=== PATIENT | female | born 1935 | race Caucasian/White ===

== ENCOUNTER 2022-12-27 14:30 | Emergency (ER) | payer MEDICARE ==
[2022-12-27] MEDS ORDERED: Calcium Gluc 4.6 MEQ/10 ML (100 MG/ML) ONE ×2 (14:52)
[2022-12-27 15:33] LABS: #Basophils 0.2 thou/uL (0.0-0.2); #Eosinphils 0.4 thou/uL (0.0-0.7); #Lymphocytes 3.3 thou/uL (1.20-3.40); #Monocytes 1.4 thou/uL (0.11-0.59); #Neutrophils 12.8 thou/uL (1.40-6.50); %Basophils 1.3 % (0.0-1.0); %Eosinophils 2.4 % (0.0-10.0); %Lymphocytes 18.3 % (21.0-51.0); %Monocytes 7.5 % (0.0-10.0); %Neutrophils 70.5 % (42.0-75.0); Hematocrit 29.7 % (36.0-47.0); Hemoglobin 9.3 g/dL (12.0-16.0); Mean Corpuscular HGB CONC 31.4 g/dL (32.0-36.0); Mean Corpuscular Hemoglobin 27.9 pg (27.0-31.0); Mean Platelet Volume 7.2 fL (7.4-10.4); Platelet Count 419 10x3/uL (130-400); RBC Distribution Width 15.9 % (11.5-14.5); Red Blood Cell (RBC) Count 3.34 mill/uL (4.20-5.40); White Blood Cell (WBC) Count 18.2 10x3/uL (4.8-10.8)
[2022-12-27 15:34] LABS: Prothrombin Time 13.2 sec (12.0-14.7)
[2022-12-27 15:37] LABS: PTT 21.8 sec (22.9-36.1)
[2022-12-27] MEDS ORDERED: Sodium Chloride 0.9% 100 ML ONE (15:45)
[2022-12-27] MEDS ORDERED: Cefepime 2 GM VIAL ONE (15:45)
[2022-12-27 15:46] LABS: ALT (SGPT) 10 U/L (8-55); AST (SGOT) 10 U/L (5-34); Albumin 2.9 g/dL (3.4-4.8); Alkaline Phosphatase 65 U/L (40-110); Anion Gap 17 mmol/L (10-20); BUN (Urea Nitrogen) 25 mg/dL (9.8-20.1); Bilirubin, Total 0.2 mg/dL (0.2-1.2); Calc. Creatinine Clearance 0 mL/min (70-130); Calcium 7.6 mg/dL (7.8-10.44); Carbon Dioxide 17 mmol/L (23-31); Chloride 101 mmol/L (98-107); Estimated GFR 20; Globulin 2.3 g/dL (2.4-3.5); Glucose 235 mg/dL (83-110); Magnesium 1.5 mg/dL (1.6-2.6); Potassium 4.7 mmol/L (3.5-5.1); Protein, Total 5.2 g/dL (5.8-8.1); Sodium 130 mmol/L (136-145)
[2022-12-27 15:47] LABS: Troponin I 0.028 ng/mL (< 0.028)
[2022-12-27 15:49] LABS: Base Excess-Venous -7.3 mmol/L (-2.0 to 3.0); Bicarbonate (HCO3v) 19.2 mmol/L (22.0-28.0); Chloride 102 mmol/L (98-107); Hemoglobin - Calc 10.4 g/dL (12.0-16.0); Potassium 4.9 mmol/L (3.5-5.1); Sodium 131 mmol/L (138-145); T. Carbon Dioxide 20.5 mmol/L (22.0-28.0); vO2 Saturation-calc 99.6 % (60.0-85.0)
== END 2022-12-27 16:09 | disposition short-term general hospital (02) ==
LOC: MADERS 14:30
DX: R00.1 Bradycardia, unspecified (principal); R57.0 Cardiogenic shock; J18.9 Pneumonia, unspecified organism; A41.9 Sepsis, unspecified organism; E11.22 Type 2 diabetes mellitus with diabetic chronic kidney disease; N18.30 Chronic kidney disease, stage 3 unspecified; I13.0 Hypertensive heart and chronic kidney disease with heart failure and stage 1 through stage 4 chronic kidney disease, or unspecified chronic kidney disease; I50.9 Heart failure, unspecified
CPT/HCPCS: 70450; 71045; 82330; 82435; 82803; 83605; 83735; 83880; 84132; 84295; 84484; 85014; 85610; 85730; 87040; 93005; 94760; J0612; 36556; 80053; 84443; 85025; 96365; 96367; 96368; J0692; J3490

== ENCOUNTER 2023-03-14 13:21 | Emergency (ER) | payer MEDICAID, MEDICARE ==
[2023-03-14] MEDS ORDERED: Acetaminophen 500 MG TAB ONE (14:00)
[2023-03-14 14:20] LABS: Magnesium 1.2 mg/dL (1.6-2.6)
[2023-03-14 14:26] LABS: Troponin I 0.055 ng/mL (< 0.028)
[2023-03-14 14:44] LABS: SARS-CoV-2 NAA Rapid Test DETECTED (NotDetected)
[2023-03-14 14:45] LABS: Hematocrit 31.8 % (36.0-47.0); Hemoglobin 10.5 g/dL (12.0-16.0); Mean Corpuscular Hemoglobin 27.9 pg (27.0-31.0); Mean Corpuscular Volume 84.6 fl (78.0-98.0); Mean Platelet Volume 7.7 fL (7.4-10.4); Platelet Count 362 10x3/uL (130-400); RBC Distribution Width 14.2 % (11.5-14.5); Red Blood Cell (RBC) Count 3.76 mill/uL (4.20-5.40); White Blood Cell (WBC) Count 14.4 10x3/uL (4.8-10.8)
[2023-03-14 14:46] LABS: Lymphocytes 12 % (21-51); MDiff Complete? YES; Manual Diff?? YES; Neutrophil 79 % (42-75)
[2023-03-14 14:47] LABS: Anisocytosis SLIGHT = 6-15 cells (100X) (0-5/hpf); Eosinophils 1 % (0-10); Monocytes 8 % (0-10); Platelet Adequacy Comment Appears Adequate
[2023-03-14 15:02] LABS: SARS-CoV-2 NAA Rapid Test DETECTED (NotDetected)
[2023-03-14] MEDS ORDERED: Sodium Chloride 0.9% 100 ML ONE (15:03)
[2023-03-14] MEDS ORDERED: Sodium Chloride 0.9% 500 ML ONE (15:03)
[2023-03-14] MEDS ORDERED: Magnesium 2 GM/50 ML BAG (IN WATER) ONE (15:03)
[2023-03-14] MEDS ORDERED: Cefepime 2 GM VIAL ONE (15:03)
[2023-03-14 15:44] LABS: ALT (SGPT) 8 U/L (8-55); AST (SGOT) 12 U/L (5-34); Albumin 3.2 g/dL (3.4-4.8); Alkaline Phosphatase 93 U/L (40-110); Anion Gap 20 mmol/L (10-20); BUN (Urea Nitrogen) 13 mg/dL (9.8-20.1); Bilirubin, Total 0.5 mg/dL (0.2-1.2); Calc. Creatinine Clearance 0 mL/min (70-130); Calcium 8.6 mg/dL (7.8-10.44); Carbon Dioxide 17 mmol/L (23-31); Chloride 101 mmol/L (98-107); Estimated GFR 49; Globulin 3.5 g/dL (2.4-3.5); Glucose 232 mg/dL (83-110); Potassium 2.8 mmol/L (3.5-5.1); Protein, Total 6.7 g/dL (5.8-8.1); Sodium 135 mmol/L (136-145)
[2023-03-14] MEDS ORDERED: Aspirin 325 MG TAB ONE (15:46)
[2023-03-14] MEDS ORDERED: NS 0.9% w/ 20 MEQ KCL 1,000 ML ONE (16:12)
[2023-03-14] MEDS ORDERED: Vancomycin 1 GM VIAL ONE (16:19)
[2023-03-14] MEDS ORDERED: Sodium Chloride 0.9% 250 ML 250 ML ONE (16:19)
[2023-03-14] MEDS ORDERED: Potassium Chloride 20 MEQ TAB ONE (16:19)
[2023-03-14] MEDS ORDERED: Potassium Chloride 20 MEQ (100 mL) BAG ONE (16:41)
[2023-03-14 17:02] LABS: Bilirubin Negative (Negative); Blood, Urine Negative (Negative); Clarity Hazy (Clear); Glucose, Urine (Dipstick) Negative (Negative); Ketone, Urine Negative (Negative); Leukocyte Negative (Negative); Nitrite Negative (Negative); Protein, Urine (Dipstick) 100 mg/dL (Neg-Trace); Specific Gravity, Urine 1.025 (1.005-1.030); Urobilinogen 0.2 mg/dL (Less than 2); pH, Urine 5.5 (5.0-9.0)
[2023-03-14 17:03] LABS: Bacteria/HPF 2+ HPF (None Seen); CAUTI Indications for Culture Alt mental st,lethar; RBC/HPF 0-3 HPF (0-3); Squamous Epithelial 0-3 HPF (0-3); WBC/HPF 0-3 HPF (0-3)
[2023-03-14 17:04] LABS: Urine Culture Reflex No No
== END 2023-03-14 17:00 | disposition short-term general hospital (02) ==
LOC: MADERS 13:21
DX: U07.1 COVID-19 (principal); R65.20 Severe sepsis without septic shock; R41.82 Altered mental status, unspecified; J18.9 Pneumonia, unspecified organism; E83.42 Hypomagnesemia; R79.89 Other specified abnormal findings of blood chemistry; E11.22 Type 2 diabetes mellitus with diabetic chronic kidney disease; N18.30 Chronic kidney disease, stage 3 unspecified; I13.0 Hypertensive heart and chronic kidney disease with heart failure and stage 1 through stage 4 chronic kidney disease, or unspecified chronic kidney disease; I50.9 Heart failure, unspecified
CPT/HCPCS: 0241U; 36415; 51701; 70450; 71045; 80053; 81001; 83605; 83735; 83880; 84484; 85025; 87040; 87086; 93005; 96365; 96367; J0692; J3370; J3475; J3480; J3490; J7030; J7050; U0002

== ENCOUNTER 2024-01-23 14:31 | Emergency (ER) | payer MEDICARE ==
[~2024-01-23 14:31] MED LIST: Iopamidol 370 76% 100 ML VIAL ONE
[2024-01-23 15:39] LABS: #Basophils 0.1 thou/uL (0.0-0.2); #Eosinophils 0.1 thou/uL (0.0-0.7); #Lymphocytes 1.8 thou/uL (1.20-3.40); #Monocytes 0.8 thou/uL (0.11-0.59); #Neutrophils 10.1 thou/uL (1.40-6.50); %Basophils 0.9 % (0.0-1.0); %Eosinophils 0.7 % (0.0-10.0); %Monocytes 6.5 % (0.0-10.0); %Neutrophils 77.9 % (42.0-75.0); Hematocrit 39.5 % (36.0-47.0); Hemoglobin 12.1 g/dL (12.0-16.0); Mean Corpuscular HGB CONC 30.7 g/dL (32.0-36.0); Mean Corpuscular Hemoglobin 29.3 pg (27.0-31.0); Mean Corpuscular Volume 95.5 fl (78.0-98.0); Mean Platelet Volume 7.7 fL (7.4-10.4); Platelet Count 400 10x3/uL (130-400); RBC Distribution Width 18.3 % (11.5-14.5); Red Blood Cell (RBC) Count 4.13 mill/uL (4.20-5.40); White Blood Cell (WBC) Count 12.9 10x3/uL (4.8-10.8)
[2024-01-23 15:54] LABS: ALT (SGPT) 13 U/L (8-55); AST (SGOT) 17 U/L (5-34); Albumin 3.9 g/dL (3.4-4.8); Alkaline Phosphatase 70 U/L (40-110); Anion Gap 20 mmol/L (10-20); BUN (Urea Nitrogen) 11 mg/dL (9.8-20.1); Bilirubin, Total 0.5 mg/dL (0.2-1.2); Calc. Creatinine Clearance 0 mL/min (70-130); Calcium 9.8 mg/dL (7.8-10.44); Carbon Dioxide 21 mmol/L (23-31); Chloride 98 mmol/L (98-107); Estimated GFR 58; Globulin 3.3 g/dL (2.4-3.5); Glucose 124 mg/dL (83-110); Lipase 27 U/L (8-78); Potassium 4.1 mmol/L (3.5-5.1); Protein, Total 7.2 g/dL (5.8-8.1); Sodium 135 mmol/L (136-145)
[2024-01-23 16:20] LABS: Bilirubin Negative (Negative); Blood, Urine Negative (Negative); Clarity Clear (Clear); Glucose, Urine (Dipstick) Negative (Negative); Ketone, Urine Trace mg/dL (Negative); Leukocyte Negative (Negative); Nitrite Negative (Negative); Protein, Urine (Dipstick) 30 mg/dL (Neg-Trace); Specific Gravity, Urine 1.015 (1.005-1.030); Urobilinogen 0.2 mg/dL (Less than 2)
[2024-01-23 16:28] LABS: Troponin I 0.028 ng/mL (< 0.028)
[2024-01-23 16:29] LABS: CAUTI Indications for Culture Dysuria,urgency,freq; RBC/HPF 0-3 HPF (0-3); Squamous Epithelial 0-3 HPF (0-3); Transitional Epithelial 0-3 HPF (None Seen); Urine Culture Reflex No No; WBC/HPF 0-3 HPF (0-3)
[2024-01-23 16:30] LABS: Bacteria/HPF Rare-Few HPF (None Seen)
[2024-01-23] MEDS ORDERED: Dicyclomine 20 MG/2 ML VIAL ONE (17:31)
[2024-01-23] MEDS ORDERED: Sodium Chloride 0.9% 1,000 ML ONE (17:32)
[2024-01-23] MEDS ORDERED: Promethazine HCl 25 MG/ML VIAL ONE (17:32)
[2024-01-23] MEDS ORDERED: Morphine 2 MG/ML VIAL ONE (17:32)
[2024-01-23] MEDS ORDERED: cloNIDine 0.1 MG TAB ONE (18:58)
[2024-01-23 19:22] LABS: Troponin I 0.029 ng/mL (< 0.028)
[2024-01-23] MEDS ORDERED: Furosemide 20 MG (2 mL) VIAL ONE (21:04)
[2024-01-23 21:08] LABS: Troponin I 0.022 ng/mL (< 0.028)
[2024-01-24 07:26] LABS: Hematocrit 37.4 % (36.0-47.0); Hemoglobin 11.6 g/dL (12.0-16.0); Mean Corpuscular HGB CONC 30.9 g/dL (32.0-36.0); Mean Corpuscular Hemoglobin 29.5 pg (27.0-31.0); Mean Corpuscular Volume 95.3 fl (78.0-98.0); Mean Platelet Volume 7.3 fL (7.4-10.4); Platelet Count 359 10x3/uL (130-400); RBC Distribution Width 18.2 % (11.5-14.5); Red Blood Cell (RBC) Count 3.92 mill/uL (4.20-5.40); White Blood Cell (WBC) Count 8.9 10x3/uL (4.8-10.8)
[2024-01-24 07:31] LABS: Anion Gap 16 mmol/L (10-20); BUN (Urea Nitrogen) 12 mg/dL (9.8-20.1); Calc. Creatinine Clearance 0 mL/min (70-130); Carbon Dioxide 24 mmol/L (23-31); Chloride 104 mmol/L (98-107); Estimated GFR 57; Glucose 108 mg/dL (83-110); Potassium 3.4 mmol/L (3.5-5.1); Sodium 141 mmol/L (136-145)
[2024-01-24 07:32] LABS: MDiff Complete? YES
[2024-01-24 07:33] LABS: Band 3 % (5-11); Eosinophils 2 % (0-10); Lymphocytes 25 % (21-51); Monocytes 6 % (0-10); Neutrophil 64 % (42-75)
[2024-01-24 07:34] LABS: Platelet Adequacy Comment Appears Adequate; RBC Morph Comment Within Normal Limits
[2024-01-24] MEDS ORDERED: Potassium Chloride 20 MEQ TAB ONE (08:30)
== END 2024-01-24 08:58 | disposition home or self-care (01) ==
LOC: MADERS 14:31
DX: E86.0 Dehydration (principal); R79.89 Other specified abnormal findings of blood chemistry; I16.1 Hypertensive emergency; I25.10 Atherosclerotic heart disease of native coronary artery without angina pectoris; I13.0 Hypertensive heart and chronic kidney disease with heart failure and stage 1 through stage 4 chronic kidney disease, or unspecified chronic kidney disease; E11.22 Type 2 diabetes mellitus with diabetic chronic kidney disease; N18.30 Chronic kidney disease, stage 3 unspecified; I50.9 Heart failure, unspecified; Z85.3 Personal history of malignant neoplasm of breast
CPT/HCPCS: 36415; 51701; 71045; 74174; 80048; 80053; 81001; 83605; 83690; 83880; 84484; 85025; 87040; 87086; 87428; 93005; 94760; 96361; 96372; 96374; 96375; J1940; J2272; J2550; J7030; Q9967